=== PATIENT | female | born 1985 | race Caucasian/White ===

== ENCOUNTER 2016-10-04 12:18 | Emergency (ER) | payer MEDICAID, SELFPAY ==
[~2016-10-04] VITALS: Ht 162.6 cm; Wt 96.8 kg
[2016-10-04] MEDS ORDERED: BENZOCAINE 20% SPRAY 0.5ML ONE (14:19)
[2016-10-04] MEDS ORDERED: BENZOCAINE 20% SPRAY 0.5ML TP ONE (14:30)
[2016-10-04 14:42] VITALS: BP 122/83
== END 2016-10-04 14:44 | disposition home or self-care (01) ==
LOC: ED 14:38
DX: R09.89 Other specified symptoms and signs involving the circulatory and respiratory systems (principal)
CPT/HCPCS: 70360; 99283

== ENCOUNTER 2021-01-15 02:15 | Emergency (ER) | payer MEDICAID ==
[~2021-01-15] VITALS: Ht 162.6 cm; Wt 102.0 kg
--- NOTE | 2021-01-15 02:30 | NUR ---
PT C/O OF RED LINES GENERALIZED OVER BODY SINCE YESTERDAY. PT STATES IT HAS BEEN GETTING WORSE OVER TIME. PT REPORTS HEADACHE AND LOWER BACK PAINS. PT SPOKE TO NURSE HOT LINE AND WAS TOLD TO COME IN . PA AT BEDSIDE FOR EVAL. ATTACHED TO MONITORS, VSS. NADN. BED IN LOW, RAILS ENGAGED, CALL LIGHT ON LAP.
[2021-01-15 02:33] VITALS: BP 138/76
--- NOTE | 2021-01-15 02:57 | NUR ---
Patient/Caregiver given discharge instructions and they have confirmed that they understand the instructions. Patient ambulatory with steady gait. NAD, all questions answered appropriately, denies additional needs at this time. No personal belongings left in room after discharge.
== END 2021-01-15 02:59 | disposition home or self-care (01) ==
LOC: ED 02:37
DX: R21 Rash and other nonspecific skin eruption (principal)
CPT/HCPCS: 99281